=== PATIENT | male | born 1950 | race Caucasian/White ===

== ENCOUNTER → 2016-09-04 | Outpatient (CLI) | payer OTHER ==
[2016-09-04 09:06] LABS: ALT/SGPT 125 U/L (12-78); BLOOD UREA NITROGEN 10 mg/dl (7-18); BUN/CREATININE RATIO 8.5 (10-20); CALCIUM 8.6 mg/dl (8.5-10.1); CARBON DIOXIDE 28 mmol/L (21-32); CHLORIDE 104 mmol/L (98-107); GLUCOSE 147 mg/dl (70-99); POTASSIUM 4.3 mmol/L (3.5-5.1); SODIUM 142 mmol/L (136-145)
[2016-09-04 09:09] LABS: ALB/GLOB RATIO 1.3 (0.9-2); ALKALINE PHOSPHATASE 81 U/L (45-117); AST/SGOT 60 U/L (15-37); CHOLESTEROL 155 mg/dl (0-200); CHOLESTEROL/HDL RATIO 2.5; HDL CHOLESTEROL 62 mg/dl; LDL CHOLESTEROL CALCULATED 67 mg/dl; TRIGLYCERIDES 130 mg/dl (0-150); VERY LOW DENSITY LIPOPROT CALC 26 mg/dl
[2016-09-04 09:19] LABS: ESTIMATED AVERAGE GLUCOSE 203 mg/dl; HA1C FLAG Normal (Normal)
[2016-09-04 10:56] LABS: LYME DISEASE AB IGG NEG (NEG); LYME DISEASE AB IGM NEG (NEG)
== END | disposition home or self-care (01) ==
LOC: C.LAB 07:23
PROVIDERS: ATTEND Family Medicine
DX: E11.9 Type 2 diabetes mellitus without complications (principal); I10 Essential (primary) hypertension; R74.8 Abnormal levels of other serum enzymes; T14.8 Other injury of unspecified body region; W57.XXXA Bitten or stung by nonvenomous insect and other nonvenomous arthropods, initial encounter

== ENCOUNTER → 2016-10-16 | Outpatient (CLI) | payer OTHER | LOC: C.LAB 07:43 | PROVIDERS: ATTEND Urology | DX: N40.1 Benign prostatic hyperplasia with lower urinary tract symptoms (principal) ==

== ENCOUNTER → 2017-02-11 | Outpatient (CLI) | payer OTHER ==
[2017-02-11 10:01] LABS: ALT/SGPT 125 U/L (12-78); BLOOD UREA NITROGEN 9 mg/dl (7-18); BUN/CREATININE RATIO 7.8 (10-20); CARBON DIOXIDE 28 mmol/L (21-32); CHLORIDE 104 mmol/L (98-107); GLUCOSE 154 mg/dl (70-99); POTASSIUM 4.4 mmol/L (3.5-5.1); SODIUM 139 mmol/L (136-145)
[2017-02-11 10:04] LABS: ALB/GLOB RATIO 1.4 (0.9-2); ALKALINE PHOSPHATASE 72 U/L (45-117); AST/SGOT 68 U/L (15-37)
[2017-02-11 12:21] LABS: ESTIMATED AVERAGE GLUCOSE 160 mg/dl; HA1C FLAG Normal (Normal)
== END | disposition home or self-care (01) ==
LOC: C.LAB 07:29
PROVIDERS: ATTEND Family Medicine
DX: E11.9 Type 2 diabetes mellitus without complications (principal); K76.0 Fatty (change of) liver, not elsewhere classified

== ENCOUNTER → 2017-05-02 | Outpatient (CLI) | payer OTHER ==
--- NOTE | 2017-05-02 10:22 | DIAGNOSTIC IMAGING REPORT ---
LUMBAR SPINE 5 VIEWS WITH FLEXION AND EXTENSION HISTORY: M54.9 Chronic back painPLEASE SEND HARD COPY TO DR. HAAS COMPARISON: Lumbar spine 05/10/2016. FINDINGS: There is no fracture. Mild discharge scoliosis, unchanged. Calcified gallstone. S1 is demonstrated to be a transitional vertebra. There is L5-S1 posterior decompression and fusion with pedicle screws and rods. The hardware appears intact. Moderate to space narrowing at L1-L2 and mild disc space narrowing at L2-L3 with small endplate osteophytes. This remains unchanged. Fusion of the L5-S1 vertebral bodies. Alignment remains intact throughout flexion and extension. Stable grade I anterolisthesis of L4 on L5. IMPRESSION: 1. Alignment remains intact throughout flexion and extension. 2. No acute fractures identified. 3. Degenerative changes and postoperative changes are again noted. Electronically signed by: Dakota Dasilva M.D. 05/02/2017 10:20 AM Dictated Date/Time: 05/02/2017 10:16 AM
== END | disposition home or self-care (01) ==
LOC: C.RAD 09:44
PROVIDERS: ATTEND Nurse Practitioner Family
DX: M54.9 Dorsalgia, unspecified (principal)

== ENCOUNTER → 2017-05-03 | Outpatient (CLI) | payer OTHER ==
--- NOTE | 2017-05-03 07:44 | DIAGNOSTIC IMAGING REPORT ---
LUMBAR SPINE WITHOUT HISTORY: 66 years-old Male CHRONIC LOW BACK PAIN no reported trauma. Follow-up study. History of prior discectomy with interbody fusion at L5-S1 COMPARISON: Lumbar spine radiographs 05/02/2017 TECHNIQUE: Multiple axial CT images of the lumbar spine were obtained without contrast. FINDINGS: There has been prior posterior interbody nancy and screw fusion at L5-S1. Chronic pars defects are seen at this level with bony fusion of the vertebral bodies and partial fusion of the facets at this level. There is unchanged 11 mm anterolisthesis of L5 on S1. Transitional lumbosacral anatomy is seen with a disc space at S1-S2. There is mild convex right curvature of the lumbar spine without acute fracture or subluxation. Mild degenerative changes involve the SI joints. There is atherosclerosis of the aorta. No acute intra-abdominal paraspinal abnormality is seen. T12-L1: No significant central canal or foraminal narrowing. L1-L2: Mild intervertebral disc space narrowing and mild facet arthrosis with circumferential annular disc bulge causing mild central canal narrowing. The foramen are patent. L2-L3: Severe intervertebral disc space narrowing with large posterior disc osteophyte complex formation and mild facet arthropathy is noted. Central canal is narrowed to 8 mm in AP dimension resulting in mild to moderate central canal, moderate left and mild right foraminal narrowing. L3-L4: Mild posterior intervertebral disc space narrowing is present in conjunction with ligamentum flavum redundancy and mild to moderate facet arthropathy. Broad-based posterior disc bulge flattens the ventral thecal sac to 6 mm causing moderate to severe central canal, moderate left and severe right foraminal narrowing. L4-L5: Mild facet arthropathy and ligamentum flavum redundancy. No significant central canal or foraminal narrowing. L5-S1: Unchanged listhesis and postsurgical changes as described above. No significant central canal narrowing. There is moderate left and moderate to severe right foraminal narrowing. IMPRESSION: 1. Posterior fusion of L5-S1 with unchanged 11 mm anterolisthesis L5 on S1. There is bony fusion of the vertebral bodies and partially involving the posterior elements at this interspace. 2. Transitional lumbosacral anatomy and mild convex right curvature of the lumbar spine are noted. 3. Severe intervertebral disc space narrowing at L2-L3 with large posterior disc osteophyte complex formation and mild facet arthropathy causes mild to moderate central canal, moderate left and mild right foraminal narrowing. 4. At L3-L4, broad-based posterior disc bulge is present in conjunction with ligamentum flavum redundancy causing moderate to severe central canal, moderate left and severe right foraminal narrowing. The above report was generated using voice recognition software. It may contain grammatical, syntax or spelling errors. Electronically signed by: Rakesh Kaminski M.D. 05/03/2017 7:42 AM Dictated Date/Time: 05/03/2017 7:23 AM
== END | disposition home or self-care (01) ==
LOC: C.CTS 07:01
PROVIDERS: ATTEND Nurse Practitioner Family
DX: M54.9 Dorsalgia, unspecified (principal)

== ENCOUNTER → 2017-05-23 | Outpatient (CLI) | payer OTHER ==
[~2017-05-23] MED LIST: GADAVIST IV PRN
--- NOTE | 2017-05-23 12:05 | DIAGNOSTIC IMAGING REPORT ---
LUMBAR SPINE MRI WITH AND WITHOUT CONTRAST HISTORY: M54.9 Chronic back painPLEASE SENT HARD COPY TO DR. WALDO SIMPSON TECHNIQUE: Multiplanar multisequence MRI of the lumbar spine was performed both before and after the intravenous administration of contrast. COMPARISON: Lumbar spine CT 05/03/2017. FINDINGS: For the purpose of the report the L5-S1 disc space will be located on axial image 22 of 33. This is in keeping with the prior lumbar spine CT. There is posterior decompression fusion at L5-S1 with pedicle screws and rods. There is fusion of the L5-S1 vertebral bodies. There is a hypoplastic disc at S1-S2. The conus terminates at the L1 level. Mild dextroscoliosis of the upper lumbar spine. No change in the 7 mm of anterolisthesis of L5 on S1. Moderate to severe disc space narrowing at L2-L3 and mild disc space narrowing at L3-L4. No fractures within the lumbar spine. Endplate degenerative changes at L2-L3. No abnormal enhancement. Paraspinal soft tissues are within normal limits.. L1-L2: Small broad-based posterior disc bulge without significant central canal or neural foraminal narrowing. L2-L3: Small broad-based posterior disc bulge with a small focal central disc protrusion demonstrating both superior and inferior subligamentous migration. In conjunction with the mild facet and ligamentum hypertrophy this results in mild central canal and mild bilateral neural foraminal narrowing. L3-L4: Small broad-based posterior disc bulge with moderate ligamentum and facet hypertrophy resulting in mild to moderate central canal narrowing. There is moderate right and mild left neural foraminal narrowing. L4-L5: No significant central canal narrowing. Mild to moderate right neural foraminal narrowing primarily due to the facet hypertrophy. No significant left-sided neural foraminal narrowing. L5-S1: There is no central canal narrowing due to the posterior decompression. Mild left-sided neural foraminal narrowing and severe right-sided neural foraminal narrowing. The right-sided neural foraminal narrowing is due to the spondylolisthesis in conjunction with the right facet hypertrophy and fused bony extension of the disc space at this location. This compresses the exiting right L5 nerve root at this location. IMPRESSION: 1. Postoperative changes as described above consistent with L5-S1 posterior decompression fusion with pedicle screws and rods. The disc space appears fused. There is stable 7 mm of anterolisthesis at this location. 2. Severe right-sided neural frontal narrowing at L5-S1 due to the spondylolisthesis, right facet hypertrophy, and fused bony extension of the disc space. This results in compression of the exiting right L5 nerve root. There are 3. Additional degenerative changes at L2-L3 and L3-L4 resulting in mild to moderate central canal narrowing as described above. 4. Transitional lumbosacral anatomy as described above with a mild convex right curvature of the lumbar spine. Electronically signed by: Dakota Dasilva M.D. 05/23/2017 12:04 PM Dictated Date/Time: 05/23/2017 11:52 AM
== END | disposition home or self-care (01) ==
LOC: C.MRI 09:45
PROVIDERS: ATTEND Nurse Practitioner Family
DX: M51.26 Other intervertebral disc displacement, lumbar region (principal)

== ENCOUNTER → 2017-05-30 | Outpatient (CLI) | payer OTHER ==
--- NOTE | 2017-05-30 12:16 | DIAGNOSTIC IMAGING REPORT ---
R PELVIS/UNILATERAL HIP 2-3VIEWS CLINICAL HISTORY: RT HIP PAIN COMPARISON STUDY: None. FINDINGS: No fracture or dislocation within the pelvis or hips. The sacrum appears intact. Mild degenerative changes within the bilateral sacroiliac joints. L5-S1 posterior decompression and fusion. Cartilage spaces of the bilateral hips are maintained for age. Soft tissues are within normal limits. IMPRESSION: 1. No fracture or dislocation within the pelvis or hips. 2. 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 Electronically signed by: Dakota Dasilva M.D. 05/30/2017 12:14 PM Dictated Date/Time: 05/30/2017 12:04 PM
== END | disposition home or self-care (01) ==
LOC: C.RAD 10:50
PROVIDERS: ATTEND Neurological Surgery
DX: M47.816 Spondylosis without myelopathy or radiculopathy, lumbar region (principal)

== ENCOUNTER → 2017-07-29 | Outpatient (CLI) | payer OTHER ==
[2017-07-29 09:24] LABS: BASO % 0.8 %; BASO ABS # 0.04 K/uL (0-0.2); HEMOGLOBIN 16.5 g/dL (14.0-18.0); IG# 0.01 K/uL (0.00-0.02); LYMPH % 32.8 %; LYMPH ABS # 1.62 K/uL (1.2-3.4); MEAN CELL VOLUME 96.2 fL (80-100); MEAN CORPUSCULAR HEMOGLOBIN 33.1 pg (25-34); MEAN CORPUSCULAR HGB CONC 34.4 g/dl (32-36); MEAN PLATELET VOLUME 10.9 fL (7.4-10.4); MONO % 6.9 %; MONO ABS # 0.34 K/uL (0.11-0.59); NEUT % 57.3 %; NEUT ABS # 2.83 K/uL (1.4-6.5); PLATELET COUNT 202 K/uL (130-400); RED CELL DISTRIBUTION WIDTH CV 13.4 % (11.5-14.5); RED CELL DISTRIBUTION WIDTH SD 47.2 fL (36.4-46.3); WHITE BLOOD COUNT 4.94 K/uL (4.8-10.8)
[2017-07-29 09:29] LABS: ALBUMIN 4.3 gm/dl (3.4-5.0); ALT/SGPT 107 U/L (12-78); BLOOD UREA NITROGEN 13 mg/dl (7-18); CALCIUM 9.1 mg/dl (8.5-10.1); CARBON DIOXIDE 28 mmol/L (21-32); CHOLESTEROL 177 mg/dl (0-200); CREATININE 1.32 mg/dl (0.60-1.40); GLUCOSE 110 mg/dl (70-99); POTASSIUM 4.1 mmol/L (3.5-5.1); SODIUM 138 mmol/L (136-145)
[2017-07-29 09:30] LABS: HEMOGLOBIN A1C 6.8 % (4.5-5.6)
[2017-07-29 09:32] LABS: ALKALINE PHOSPHATASE 69 U/L (45-117); AST/SGOT 55 U/L (15-37); LDL CHOLESTEROL CALCULATED 81 mg/dl; TOTAL PROTEIN 7.4 gm/dl (6.4-8.2)
== END | disposition home or self-care (01) ==
LOC: C.LAB 08:12
PROVIDERS: ATTEND Nurse Practitioner Family
DX: E11.9 Type 2 diabetes mellitus without complications (principal); I10 Essential (primary) hypertension; N40.1 Benign prostatic hyperplasia with lower urinary tract symptoms; K21.9 Gastro-esophageal reflux disease without esophagitis; K76.0 Fatty (change of) liver, not elsewhere classified

== ENCOUNTER → 2017-10-04 | Outpatient (CLI) | payer OTHER ==
[2017-10-04 09:49] LABS: BLOOD UREA NITROGEN 15 mg/dl (7-18); CALCIUM 9.1 mg/dl (8.5-10.1); CARBON DIOXIDE 30 mmol/L (21-32); CREATININE 1.15 mg/dl (0.60-1.40); GLUCOSE 156 mg/dl (70-99); POTASSIUM 4.2 mmol/L (3.5-5.1); SODIUM 138 mmol/L (136-145)
[2017-10-04 10:45] LABS: HEMOGLOBIN A1C 7.1 % (4.5-5.6)
== END | disposition home or self-care (01) ==
LOC: C.LAB 08:20
PROVIDERS: ATTEND Nurse Practitioner Family
DX: E11.9 Type 2 diabetes mellitus without complications (principal); Z12.5 Encounter for screening for malignant neoplasm of prostate